=== PATIENT | female | born 1970 | race Caucasian/White ===

== ENCOUNTER 2018-07-20 18:57 | Emergency (ER) | payer OTHER ==
[~2018-07-20] VITALS: Ht 165.1 cm; Wt 133.8 kg
[2018-07-20 20:22] LABS: BASO % 1 % (0-3); EOS # 0.2 x10^3/uL (0.0-0.7); EOS % 2 % (0-3); HEMOGLOBIN 14.3 g/dL (12.0-15.5); LYMPH # 3.6 x10^3/uL (1.0-4.8); LYMPH % 34 % (24-48); MEAN CORPUSCULAR HEMOGLOBIN 29 pg (25-35); MEAN CORPUSCULAR HGB CONC 33 g/dL (31-37); MEAN CORPUSCULAR VOLUME 86 fL (79-100); MONO # 0.6 x10^3/uL (0.0-1.1); MONO % 5 % (0-9); NEUT # 6.2 x10^3uL (1.8-7.7); NEUT % 59 % (31-73); PLATELET COUNT 321 x10^3/uL (140-400); RED BLOOD COUNT 5.01 x10^6/uL (3.50-5.40); RED CELL DISTRIBUTION WIDTH 13.1 % (11.5-14.5); WHITE BLOOD COUNT 10.6 x10^3/uL (4.0-11.0)
[2018-07-20 20:32] LABS: PROTHROMBIN TIME PATIENT 12.9 SEC (11.7-14.0)
[2018-07-20 20:45] LABS: CALCIUM 9.2 mg/dL (8.5-10.1); CREATININE 0.8 mg/dL (0.6-1.0); GFR 76.2; POTASSIUM 4.2 mmol/L (3.5-5.1)
[2018-07-20 20:51] LABS: ALBUMIN/GLOBULIN RATIO 0.6 (1.0-1.7); MAGNESIUM 1.9 mg/dL (1.8-2.4); TOTAL BILIRUBIN 0.3 mg/dL (0.2-1.0); TOTAL PROTEIN 7.9 g/dL (6.4-8.2)
[2018-07-20] MEDS ORDERED: ASPIRIN 325 MG TABLET PO ONE (21:00)
[2018-07-20] MEDS ORDERED: DEXAMETHASONE SOD PHOS 20 MG/5 ML VIAL. IV ONE (21:00)
--- NOTE | 2018-07-20 21:13 | PHYS DOC ---
Past Medical History Past Medical History: Diabetes-Type II, High Cholesterol, Hypertension Additional Past Medical Histor: PTSD, insomnia Past Surgical History: Cholecystectomy, Tubal ligation Alcohol Use: Sober Drug Use: None Adult General Chief Complaint Chief Complaint: CHEST PAIN HPI HPI Patient is a 48 year old morbidly obese female who presents to the ER via [facility] today with complaints of intermittent left-sided chest pain and cough for the last 2 weeks. She reports the chest pain began at 1400 today. The pain increases with deep breath, palpation, and coughing. Pt denies shortness of breath and states that her cough has been non-productive. She denies any nausea , vomiting, diaphoresis, fever, chills, or body aches. Pt states she has a hx of HTN and has been out of her medication for several days, she just moved here and has an appointment with a new PCP next week. She is unsure of what medication she had been prescribed for her HTN in the past. Currently she rates her pain a 8/10 on the pain scale and she denies any alleviating factors. Review of Systems Review of Systems Constitutional: Denies fever or chills [] Eyes: Denies changes HENT: Denies nasal congestion or sore throat [] Respiratory: See HPI Cardiovascular: No additional information not addressed in HPI [] GI: Denies abdominal pain, nausea, vomiting, or diarrhea [] Musculoskeletal: Denies back pain or joint pain [] Integument: Denies rash or skin lesions [] Neurologic: Denies headache Endocrine: Denies polyuria or polydipsia [] All other systems were reviewed and found to be within normal limits, except as documented in this note. Current Medications Current Medications Current Medications Medications (Trade) Dose Ordered Sig/Sesar Start Time Stop Time Status Last Admin Dose Admin Aspirin (Parker Aspirin) 325 mg 1X ONCE 07/20/18 21:00 07/20/18 21:02 DC 07/20/18 21:10 325 MG Dexamethasone Sodium Phosphate (Decadron) 10 mg 1X ONCE 07/20/18 21:00 07/20/18 21:01 DC 07/20/18 21:09 10 MG Allergies Allergies Allergies Coded Allergies Type Severity Reaction Last Updated Verified Penicillins Allergy Intermediate 07/20/18 Yes latex Allergy Intermediate 07/20/18 Yes omeprazole Allergy Intermediate 07/20/18 Yes Physical Exam Physical Exam Constitutional: Well developed, well nourished, no acute distress, non-toxic appearance, obese[] HENT: Normocephalic, atraumatic, bilateral external ears normal, oropharynx moist, nose normal. [] Eyes: PERRLA, conjunctiva normal, no discharge. [] Neck: Normal range of motion, no stridor. [] Cardiovascular: Heart rate regular rhythm, no murmur [] Lungs & Thorax: Bilateral breath sounds clear to auscultation; left chest wall TTP, no crepitus [] Abdomen: soft, no tenderness, no masses, no pulsatile masses. [] Skin: Warm, dry, no erythema, no rash. [] Extremities: No cyanosis, ROM intact, no edema. [] Neurologic: Alert and oriented X 3, no focal deficits noted. [] Psychologic: Affect normal, judgement normal, mood normal. [] Current Patient Data Vital Signs Vital Signs Date Time Temp Pulse Resp B/P (MAP) Pulse Ox O2 Delivery O2 Flow Rate FiO2 07/20/18 19:00 98.3 73 18 156/90 (112) 95 Room Air 98.3 Lab Values Laboratory Tests Test 07/20/18 20:10 White Blood Count 10.6 x10^3/uL (4.0-11.0) Red Blood Count 5.01 x10^6/uL (3.50-5.40) Hemoglobin 14.3 g/dL (12.0-15.5) Hematocrit 43.0 % (36.0-47.0) Mean Corpuscular Volume 86 fL (79-100) Mean Corpuscular Hemoglobin 29 pg (25-35) Mean Corpuscular Hemoglobin Concent 33 g/dL (31-37) Red Cell Distribution Width 13.1 % (11.5-14.5) Platelet Count 321 x10^3/uL (140-400) Neutrophils (%) (Auto) 59 % (31-73) Lymphocytes (%) (Auto) 34 % (24-48) Monocytes (%) (Auto) 5 % (0-9) Eosinophils (%) (Auto) 2 % (0-3) Basophils (%) (Auto) 1 % (0-3) Neutrophils # (Auto) 6.2 x10^3uL (1.8-7.7) Lymphocytes # (Auto) 3.6 x10^3/uL (1.0-4.8) Monocytes # (Auto) 0.6 x10^3/uL (0.0-1.1) Eosinophils # (Auto) 0.2 x10^3/uL (0.0-0.7) Basophils # (Auto) 0.0 x10^3/uL (0.0-0.2) Prothrombin Time 12.9 SEC (11.7-14.0) Prothrombin Time INR 1.0 (0.8-1.1) Sodium Level 139 mmol/L (136-145) Potassium Level 4.2 mmol/L (3.5-5.1) Chloride Level 100 mmol/L (98-107) Carbon Dioxide Level 35 mmol/L (21-32) H Anion Gap 4 (6-14) L Blood Urea Nitrogen 9 mg/dL (7-20) Creatinine 0.8 mg/dL (0.6-1.0) Estimated GFR (Cockcroft-Gault) 76.2 BUN/Creatinine Ratio 11 (6-20) Glucose Level 156 mg/dL (70-99) H Calcium Level 9.2 mg/dL (8.5-10.1) Magnesium Level 1.9 mg/dL (1.8-2.4) Total Bilirubin 0.3 mg/dL (0.2-1.0) Aspartate Amino Transferase (AST) 16 U/L (15-37) Alanine Aminotransferase (ALT) 15 U/L (14-59) Alkaline Phosphatase 171 U/L (46-116) H Troponin I Quantitative < 0.017 ng/mL (0.000-0.055) XQ-Piw-B-Type Natriuretic Peptide < 5 pg/mL (0-124) Total Protein 7.9 g/dL (6.4-8.2) Albumin 3.0 g/dL (3.4-5.0) L Albumin/Globulin Ratio 0.6 (1.0-1.7) L Laboratory Tests 07/20/18 20:10 Laboratory Tests 07/20/18 20:10 EKG EKG 1902- SR leftward axis, no STEMI, rate 79, read by Dr. Alcantara[] Radiology/Procedures Radiology/Procedures CXR no acute findings read by Dr. Alcantara[] Course & Med Decision Making Course & Med Decision Making Pertinent Labs and Imaging studies reviewed. (See chart for details) DX: acute costochondritis, URI with cough and congestion, hypertension DDx: STEMI, GERD, pneumonia, pleurisy, PUD Pt was given 325 mg of ASA and 10 mg of decadron IV in the ER. She reports relief of her left sided chest pain rating it at 1-2/10 after medications. CXR negative for any acute findings as read by Dr. Alcantara. CBC unremarkable, PT/INR WNL, glucose 156, troponin <0.017, BNP <5, VSS. Heart Score was 3, low suspicion of ACS. Pt instructed to follow up with PCP as planned next week, return to the ER if symptoms worsen. Patient verbalized an understanding of home care, medications, follow-up, and return to ED instructions and was in agreement with the plan of care. [] Dragon Disclaimer Dragon Disclaimer This electronic medical record was generated, in whole or in part, using a voice recognition dictation system. Departure Departure Impression: Primary Impression: Acute costochondritis Additional Impressions: URI with cough and congestion Hypertension Disposition: 01 HOME, SELF-CARE Condition: IMPROVED Referrals: UNKNOWN PCP NAME (PCP) Patient Instructions: Costochondritis, [id number], Upper Respiratory Infection, Adult, [id number] Additional Instructions: Fill prescription(s) and use as directed. Recommend use of a Cool mist humidifier in room at bedtime. Alternate Tylenol or ibuprofen as needed for pain /fever. Increase clear fluids. Avoid airway triggers such as smoke, fragrance, dust, and pollen. Follow-up with your primary care doctor symptoms persist, return to the ER symptoms worsen. Scripts Benzonatate (TESSALON PERLE) 100 Mg Capsule 1 CAP PO TID PRN for cou., #21 CAP 0 Refills Prov: MIGUEL ANGELA MANAGER EMERGENCY 07/20/18 Problem Qualifiers Additional Impressions: Hypertension Hypertension type: unspecified Qualified Codes: I10 - Essential (primary) hypertension MIGUEL ANGELA MANAGER EMERGENCY Jul 20, 2018 21:12
[2018-07-20] MEDS ORDERED: BENZ100C PO (21:55)
[2018-07-20 21:58] VITALS: BP 149/83
--- NOTE | 2018-07-21 00:12 | RAD ---
EXAM: PA and Lateral Views of the Chest DATE: 07/20/2018 7:43 PM INDICATION: LEFT SIDED CHEST PAIN STARTING TODAY. HX OF ASTHMA, HBP COMPARISON: No Prior FINDINGS: The heart is not enlarged. Mediastinal and hilar contours are normal. No focal parenchymal airspace opacity. Low long volumes. No pleural effusion or pneumothorax. IMPRESSION: No evidence for acute cardiopulmonary process. Electronically signed by: Jona Martinez MD (07/21/2018 12:09 AM) [facility]
--- NOTE | 2018-07-21 05:17 | EKG ---
[facility] [address] [place] [id number] Test Date: 2018-07-20 Test Time: 19:02:50 Pat Name: WALLY ABDUL Department: Room: Gender: F Senior Marketing Data Analyst: : 1970 Requested By: MIGUEL ANGELA Order Number: [id number] Reading MD: Dakota Amaro MD Measurements Intervals [place] Rate: 79 P: 0 [place]: 152 QRS: -1 QRSD: 92 T: 3 QT: 396 QTc: 455 Interpretive Statements SINUS RHYTHM NON-SPECIFIC ST/T CHANGES Electronically Signed On 07-21-2018 9:16:36 CDT by Dakota Amaro MD
== END 2018-07-20 22:24 | disposition home or self-care (01) ==
LOC: ER 18:57
DX: I10 Essential (primary) hypertension (principal); M94.0 Chondrocostal junction syndrome [Tietze]; J06.9 Acute upper respiratory infection, unspecified; E11.9 Type 2 diabetes mellitus without complications; E78.00 Pure hypercholesterolemia, unspecified; Z90.49 Acquired absence of other specified parts of digestive tract; Z98.51 Tubal ligation status; Z79.82 Long term (current) use of aspirin; Z88.8 Allergy status to other drugs, medicaments and biological substances; Z88.0 Allergy status to penicillin; Z91.040 Latex allergy status
CPT/HCPCS: 36415; 71046; 80053; 83735; 83880; 84484; 85025; 85610; 93005; 96374; 99284; J1100